=== PATIENT | male | born 1965 | race African-American/Black ===

== ENCOUNTER → 2021-08-09 | Outpatient (CLI) | payer MEDICARE, OTHER ==
[~2021-08-09] MED LIST: ABACAVIR300 MG PO; ATORVASTATIN CA20 MG PO; DICYCLOMINE HCL10 MG PO; EPIVIR10 MG/1 ML PO; GABAPENTIN100 MG PO; HYDRALAZINE PO; ISENTRESS400 MG PO; MINOXIDIL2.5 MG PO; MIRTAZAPINE15 MG PO; PANTOPRAZOLE SO40 MG PO; RENAGEL800 MG PO; SENSIPAR30 MG PO
== END ==
LOC: RAD 11:53
PROVIDERS: ATTEND Internal Medicine
DX: M79.644 Pain in right finger(s) (principal)